=== PATIENT | female | born 1975 | race Caucasian/White ===

== ENCOUNTER 2022-04-22 13:39 | Emergency (ER) | payer OTHER ==
[~2022-04-22] VITALS: Ht 152.4 cm; Wt 81.6 kg
--- NOTE | 2022-04-22 13:44 | NUR ---
pt roomed, MD at bedside, pt in stable condition. denies SOB at this time.
[2022-04-22] MEDS ORDERED: methylPREDNISolone SOD SUCC 125 MG/2 ML VIAL IV ONE (13:45)
[2022-04-22] MEDS ORDERED: FAMOTIDINE. 20 MG/2 ML VIAL IV ONE ×2 (13:45→13:51)
[2022-04-22] MEDS ORDERED: methylPREDNISolone SOD SUCC 125 MG/2 ML VIAL ONE (13:50)
[2022-04-22] MEDS ORDERED: EPIN0.3A4 IM (16:26)
--- NOTE | 2022-04-22 17:02 | NUR ---
iv removed, site covered with pressure dressing and tape. Patient discharged to home in stable condition. Written and verbal after care instructions given. Patient verbalizes understanding of instructions. Stressed follow up or return to ER for worsening s/s.
[2022-04-22 17:04] VITALS: BP 122/73
== END 2022-04-22 16:45 | disposition home or self-care (01) ==
LOC: ER 13:39
DX: T78.1XXA Other adverse food reactions, not elsewhere classified, initial encounter (principal); L50.0 Allergic urticaria; X58.XXXA Exposure to other specified factors, initial encounter
CPT/HCPCS: 99284; 96374; 96375; J3490; J2930; A4663